=== PATIENT | female | born 1985 | race Two or more races ===

== ENCOUNTER 2017-03-02 17:07 | Emergency (ER) | payer OTHER ==
[2017-03-02 20:09] VITALS: BP 117/81
== END 2017-03-02 20:09 | disposition home or self-care (01) ==
LOC: ED 17:07
DX: F41.9 Anxiety disorder, unspecified (principal); J40 Bronchitis, not specified as acute or chronic; S30.1XXA Contusion of abdominal wall, initial encounter; V49.49XA Driver injured in collision with other motor vehicles in traffic accident, initial encounter; W22.11XA Striking against or struck by driver side automobile airbag, initial encounter; Y93.89 Activity, other specified; Y99.8 Other external cause status; Y92.89 Other specified places as the place of occurrence of the external cause